=== PATIENT | male | born 1965 | race American Indian/Alaskan Native ===

== ENCOUNTER 2017-06-06 10:37 | Emergency (ER) | payer MEDICARE ==
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
[2017-06-06 17:50] VITALS: BP 160/108
== END 2017-06-06 18:02 | disposition home or self-care (01) ==
LOC: ED 10:37
DX: M54.2 Cervicalgia (principal); M54.9 Dorsalgia, unspecified
CPT/HCPCS: 99282

== ENCOUNTER 2020-04-18 08:32 | Emergency (ER) | payer SELFPAY ==
[2020-04-18] MEDS ORDERED: HYDROGEN PEROXIDE 118 ML SOLUTION ONE (08:44)
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
[2020-04-18 09:15] VITALS: BP 205/126
== END 2020-04-18 09:10 | disposition home or self-care (01) ==
LOC: ED 08:32
DX: T16.2XXA Foreign body in left ear, initial encounter (principal); M13.88 Other specified arthritis, other site; Z79.899 Other long term (current) drug therapy; X58.XXXA Exposure to other specified factors, initial encounter
CPT/HCPCS: 99282